=== PATIENT | male | born 1980 | race Caucasian/White ===

== ENCOUNTER → 2017-12-07 09:17 | Outpatient (CLI) | payer MEDICAID, SELFPAY | PROVIDERS: Visit Provider Nurse Practitioner Family | DX: R05 Cough (principal); R50.9 Fever, unspecified; R52 Pain, unspecified | CPT/HCPCS: 87275; 87276 ==

== ENCOUNTER 2023-09-21 16:21 | Emergency (ER) | payer MEDICAID, SELFPAY ==
[2023-09-21 16:22] VITALS: BP 134/90; PULSE 92; RESP 17; TEMP 36.8; O2SAT 98; BMI 27.3
--- NOTE | 2023-09-21 16:43 | [facility].EDGENADL ---
Discharge Plan Referrals Follow up/Referrals: Provider,Referral, [Primary Care Provider] - See instructions Gurpreet Li DO [Staff Physician] - See instructions Activity Restrictions/Add. Instructions Additional Instructions/Restrictions: At this time it was felt you are safe to be discharged home. If new or worsening symptoms please do not hesitate to return the emergency department. Please call and schedule an appointment with Dr. Li to establish care. Please contact [facility] for evaluation of your addiction. Clinical Impressions Clinical Impression: Substance abuse Discharge ED Provider: Juan Vargas General Adult HPI General Stated complaint: vomitting Time Seen by Provider: 09/21/23 16:25 History of Present Illness HPI narrative: Patient is a 42-year-old male with past medical history of traumatic brain injury, polysubstance abuse who presents emergency department at the behest of his mother due to concern for ongoing substance abuse. Patient states that he has had multiple struggles with addiction, he recently has used heroin and his mother wants him drug tested and his family caused him to come here. Patient is not requesting drug testing at this time. He is on Suboxone currently however has concomitant opiate abuse and wishes to be converted to methadone however he knows that if he passes dirty he will not be able to do this. Patient has no acute complaints at this time. [facility] Disclaimer: The information contained in this section may have been updated after the patient was seen, as this information can be updated by other users. Social History Smoking Status: Current every day smoker alcohol intake: current current occupational status: other Travel in the last 8 weeks: None ROS Obtained: Yes Systems reviewed as appropriate & no additional complaints except as documented Physical Exam General General appearance: alert and in no apparent distress Head Head exam: atraumatic and normocephalic Eye Eye exam: Present PERRL and EOMI ENT ENT exam: Present mucous membranes moist Neck Neck exam: Present normal inspection Chest Chest inspection: Present normal inspection and symmetric chest wall rise Respiratory Respiratory exam: Present normal lung sounds bilaterally; Absent respiratory distress Cardiovascular Cardiovascular exam: Present regular rate and normal rhythm Abdominal Exam Abdominal exam: Present soft; Absent tenderness Extremities Exam Extremities exam: Present normal inspection Neurological Exam Neurological exam: Present alert and oriented X3 Psychiatric Psychiatric exam: Present normal affect Skin Skin exam: Present warm and dry Medical Decision Making Uriel Inquiry Pt receiving controlled substance: No Medical Decision Narrative: In summary patient is a 42-year-old male with past medical history described above who presents emergency department for evaluation. Patient has no acute complaints. He is refusing drug testing and hematologic labs. Last opiate use greater than 8 hours ago. Patient is hemodynamically stable and has no symptoms of opioid toxicity at this time. Based on history and physical exam he is honest with his opiate abuse and drug screen is unlikely to change care at this time. Patient is alert and oriented, is able to understand his decision, appreciate his decision, reason through and make an express choice therefore having capacity. Patient will be given outpatient resources including PCP referral and referral to [facility]. Patient was educated on bedside as to projected course of disease should his addiction continue. He was given return precautions and will be discharged with Narcan. Critical Care Critical Care Time Critical Care Time: No
[2023-09-21 17:05] VITALS: BP 130/89; PULSE 98; RESP 19; TEMP 36.6; O2SAT 97
== END 2023-09-21 17:08 | disposition home or self-care (01) ==
PROVIDERS: Emergency Provider Emergency Medicine
DX: F11.10 Opioid abuse, uncomplicated (principal); F17.200 Nicotine dependence, unspecified, uncomplicated
CPT/HCPCS: 99282